=== PATIENT | female | born 1970 | race Two or more races ===

== ENCOUNTER → 2016-12-05 | Outpatient (CLI) | payer OTHER ==
--- NOTE | ~2016-12-05 | MY11 ---
[facility] A Service of [facility] RADIOLOGY TEXT RESULTS PATIENT: STEVE MACHADO LOCATION: [facility] : 70 UNIT #: [id number] AGE: [address]: OBEY SAGASTUME APRN SEX: F ORDER DR: [id number] [facility] [address] [place], [place] [address] [id number] O MR#: [id number] Acc #: [id number] NAME: STEVE MACHADO : 1970 SEX: F STUDY DATE/TIME: 12/05/2016 11:52 UNIT: [facility] ROOM: STUDY DESCRIPTION: MY Mammogram Screening Dig Ag Attending Physician: Greta Sagastume M.D. Referring Physician: Greta Sagastume M.D. Ordering Physician: Greta Sagastume M.D. Primary Care Physician: Adelfo Covarrubias M.D. MEDICAL IMAGING REPORT This report is preliminary unless electronic signature is present EXAM Digital screening mammogram 12/05/2016 HISTORY 46-year-old woman no risk elevation. Annual screen. COMPARISON 12/16/2010, 10/09/2013 [facility]. FINDINGS Digital imaging of each breast was completed utilizing screening protocol. Review includes FDA-approved CAD device. Breast parenchyma is predominantly fatty replaced. Mild parenchymal dominance upper outer quadrant right breast is again noted. Benign calcifications are stable. I see no suspicious breast mass. There are no interval occurring microcalcifications and no architectural deformity. IMPRESSION Negative mammogram. Annual screening recommended. Patients over the age of 40 are entered into a reminder system with target due date for the next mammogram. A result letter will also be sent to the patient. BIRADS: 1 Negative Dictated by... Mikey Sneed M.D. THIS IS AN ELECTRONICALLY VERIFIED REPORT Mikey Sneed M.D. at 12/07/2016 1:09 PM MONAB/christopher [facility] A Service of [facility] RADIOLOGY TEXT RESULTS PATIENT: STEVE MACHADO LOCATION: [facility] : 70 UNIT #: [id number] AGE: [address]: OBEY SAGASTUME APRN SEX: F ORDER DR: TD: 12/07/2016 12:19 JOB #: [id number] MEDICAL IMAGING REPORT Page 1 of 1 COPY
== END | disposition home or self-care (01) ==
LOC: CWCC 11:16
DX: Z12.31 Encounter for screening mammogram for malignant neoplasm of breast (principal)
CPT/HCPCS: G0202